=== PATIENT | male | born 2005 | race African-American/Black ===

== ENCOUNTER 2025-01-23 14:43 | Emergency (ER) | payer SELFPAY ==
--- NOTE | ~2025-01-23 | XR_ITS ---
[id number] Indication: tingling index and thumb L hand 2 days no injury Comparison: None Findings: The vertebral heights are intact. No fracture or subluxation. The disc heights are intact. Soft tissues unremarkable Impression: No acute abnormality. Reviewed, dictated and finalized at location A. Impression: No acute abnormality.
[2025-01-23 14:56] VITALS: BP 122/68; PULSE 86; RESP 18; TEMP 37.3; O2SAT 100
--- NOTE | 2025-01-23 15:05 | ED.UPPEXIN ---
HPI - Extremity Injury (Upper) General Chief Complaint: Extremity Injury, Upper Stated Complaint: Left Hand Numb Time Seen by Provider: 01/23/25 15:05 Source: patient Mode of arrival: ambulatory Limitations: no limitations History of Present Illness HPI narrative: 19 yo M presents with c/o tingling sensation to L thumb and index finger. Pt states he woke up two mornings ago with numbness to entire L arm. Lasted most of the day. States he woke up with L arm up on pillow and sleeping on arm. Assumed numbness was from sleeping on arm. Denies pain. L arm numbness did not change ADLs. Noticed that numbness went away but continues to have tingling to L thumb and index finger. No weakness or change in ROM. 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 Does not have PCP for follow up. All systems reviewed and negative except as noted above. Related Data Home Medications ?Medication ?Instructions ?Recorded ?Confirmed ?Last Taken ?Type multivitamin (Daily Multi-Vitamin 1 tablet PO DAILY 01/23/25 Unknown History tablet) Allergies Allergy/AdvReac Type Severity Reaction Status Date / Time diphenhydramine (From AdvReac Intermediate Hallucinati Verified 01/23/25 15:29 Benadryl) [facility] Comments At time of signature, agree with nursing past medical, surgical, social and family history. There is no relevant family history pertinent to the presenting complaint. Exam Narrative: GENERAL: This is a well-nourished, well-developed patient, in no apparent distress. HEAD: normocephalic, atraumatic. EYES: PERRL. Sclera clear/white. Vision is grossly intact. EARS: External ears normal NOSE: External nose normal NECK: Neck supple, non-tender without lymphadenopathy, masses or thyromegaly. No midline or muscular tenderness. Normal ROM. CARDIOVASCULAR: Regular rate and rhythm without murmurs, gallops, or rubs. RESPIRATORY: Clear to auscultation. Breath sounds equal bilaterally. No wheezes, rales, or rhonchi. SKIN: warm, Dry, intact with no suspicious lesions or rash, good texture and turgor. NEURO: awake, alert, and oriented to person, place and time. There were no obvious focal neurologic abnormalities. EXTREMITIES: No joint tenderness, effusion, or edema noted. normal ROM to LUE. no weakness to L thumb or index finger. Course Course Level of Care: Express Care Visit Vital Signs Vital signs: Vital Signs Temperature 37.3 C 01/23/25 14:56 Pulse Rate 86 01/23/25 14:56 Respiratory Rate 18 01/23/25 14:56 Blood Pressure 122/68 01/23/25 14:56 Pulse Oximetry 100 01/23/25 14:56 Oxygen Delivery Room Air 01/23/25 14:56 Temperature 37.3 C 01/23/25 14:56 Pulse Rate 86 01/23/25 14:56 Respiratory Rate 18 01/23/25 14:56 Blood Pressure 122/68 01/23/25 14:56 Pulse Oximetry 100 01/23/25 14:56 Oxygen Delivery Room Air 01/23/25 14:56 reviewed MDM - Extremity Injury (Upper) MDM Narrative Medical decision making narrative: x-ray of cervical spine is normal. Recommend follow-up with hand specialist for further evaluation of tingling to left thumb and finger. Offered referral to Dr. Toussaint at the but mother states she has a PCP and hand specialist that she will call for pt. No neuro deficits. Will go to ER for any worsening of symptoms. Imaging Data My impression: Agree with Radiology Radiologist's impression: [id number] Indication: tingling index and thumb L hand 2 days no injury Comparison: None Findings: The vertebral heights are intact. No fracture or subluxation. The disc heights are intact. Soft tissues unremarkable Impression: No acute abnormality. Discharge Plan Discharge Clinical Impression: Numbness and tingling in left hand Patient Disposition: Home Condition: Stable Instructions: Paresthesia (ED) Additional Instructions: The x-ray of your cervical spine was normal. Follow-up with a hand specialist for further evaluation of your symptoms. For any worsening of symptoms such as weakness, swelling go to the ER. Patient Language: Hungarian Prescriptions: No Action multivitamin [Daily Multi-Vitamin] Tablet 1 tablet PO DAILY Follow-up/Referrals: PHYSICIAN,TESTING ENGINEER [Primary Care Provider, Internal Medicine] Stand Alone Forms: Work/School Release IP Time of Disposition: 15:35
== END 2025-01-23 15:41 | disposition home or self-care (01) ==
PROVIDERS: Emergency Provider Nurse Practitioner Family
DX: R20.0 Anesthesia of skin (principal); R20.2 Paresthesia of skin
CPT/HCPCS: 72040; 99203; G0463